=== PATIENT | female | born 1980 | race Caucasian/White ===

== ENCOUNTER 2016-06-11 15:11 | Emergency (ER) ==
--- NOTE | 2016-06-11 16:28 | EDDOCDS ---
Physician Documentation [facility] Name: Angela Hall Age: 35 yrs Sex: Female : 1980 Arrival Date: 06/11/2016 Time: 15:11 Bed Triage 3 Private MD: Disposition: 06/11/16 16:22 Discharged to Home/Self Care. Impression: Acute cystitis - UTI. - Condition is Stable. - Discharge Instructions: Urinary Tract Infection. - Prescriptions for Cipro 250 mg Oral Tablet - take 1 tablet by ORAL route every 12 hours; 20 tablet. - Medication Reconciliation, Local Pharmacy Hours form. - Follow up: Private Physician; When: Call to arrange an appointment; Reason: Recheck today's complaints. Follow up: Emergency Department; When: As needed; Reason: Fever > 102F, Worsening of conditions. - Problem is new. - Symptoms are unchanged. Historical: - Allergies: no known allergies; - Home Meds: 1. Suboxone 8-2 mg SL film 1 film twice a day 2. Lexapro 15mg Oral tab once daily 3. Uristat 95 mg oral tab daily (Last dose: 06/11/2016 09:00) - PMHx: Depression; - PSHx: Appendectomy; ; - Social history: Smoking status: Patient uses tobacco products, light tobacco smoker. No barriers to communication noted, The patient speaks fluent Kyrgyz, Speaks appropriately for age. - Family history: Not pertinent. - : The pt / caregiver states he / she is not on anticoagulants. Home medication list is obtained from the patient. - Exposure Risk Screening:: None identified. ALIGNING INSPECTOR: 06/11 15:27 LMP N/A - control method pml Vital Signs: 15:14 BP 127 / 75 RA Sitting (auto/reg); Pulse 90; Resp 18; Temp 98.5(O); Pulse Ox 99% on bnb R/A; Weight 54.43 kg / 120 lbs; Height 5 ft. 3 in. (160.02 cm); Pain 5/10; 15:14 Body Mass Index 21.26 (54.43 kg, 160.02 cm) bnb MDM: 15:20 UA Ordered. EDMS 15:20 Urine Culture Ordered. EDMS 15:20 UCG by Nursing ordered. cc10 16:11 UA Reviewed. ar2 Point of Care Testing: Urine : 15:29 hCG Reading: Negative; Control Reading: Positive; pml Ranges: Signatures: Dispatcher [employer] EDDavid Gibbs, MICKY WEEKS ar2 Rocío Valladares RN RN pml Dimitri Melendez PA-C PA-C cc10 MTDD
--- NOTE | 2016-06-11 16:28 | EDDOCDS ---
Nurse's Notes [facility] Name: Angela Hall Age: 35 yrs Sex: Female : 1980 Arrival Date: 06/11/2016 Time: 15:11 Bed Triage 3 Private MD: Diagnosis: Acute cystitis-UTI Presentation: 06/11 15:15 Presenting complaint: Patient states: burning/pain/urgency with urination, pain rs3 radiating to back for a week. Adult Sepsis Screening: The patient does not have new or worsening altered mentation. Patient's respiratory rate is less than 22. Systolic blood pressure is greater than 100. Patient has a qSOFA score of 0- Negative Sepsis Screen. Suicide/Homicide risk assessment- the patient denies having any suicidal and/or homicidal ideations and does not present with any other emotional, behavioral or mental health complaints. Status: Patient is not a media services director or dependent. Transition of care: patient was not received from another setting of care. 15:15 Acuity: JAYCE Level 4 rs3 15:15 Method Of Arrival: Walkin/Carried/Asstd rs3 Triage Assessment: 15:27 General: Appears in no apparent distress. Pain: Location: pelvis Pain currently is 6 pml out of 10 on a pain scale. HIV screening NA for this visit Offered previously. GENERATOR TECHNICIAN: 15:27 LMP N/A - control method pml Historical: - Allergies: no known allergies; - Home Meds: 1. Suboxone 8-2 mg SL film 1 film twice a day 2. Lexapro 15mg Oral tab once daily 3. Uristat 95 mg oral tab daily (Last dose: 06/11/2016 09:00) - PMHx: Depression; - PSHx: Appendectomy; ; - Social history: Smoking status: Patient uses tobacco products, light tobacco smoker. No barriers to communication noted, The patient speaks fluent Sudanese, Speaks appropriately for age. - Family history: Not pertinent. - : The pt / caregiver states he / she is not on anticoagulants. Home medication list is obtained from the patient. - Exposure Risk Screening:: None identified. Screenin:26 Screening information is obtained from the patient. Fall risk: No risks identified. pml Assistance ADL's: requires no assistance with activities of daily living. Abuse/DV Screen: The patient / caregiver reports he/she is: not in a situation that causes fear, pain or injury. Nutritional screening: No deficits noted. Advance Directives: Currently, there is no health care proxy. home support is adequate. Assessment: 16:26 General: Appears in no apparent distress, Behavior is appropriate for age, cooperative. pml Pain: Location: pelvis. Neurological: Level of Consciousness is awake, alert, Oriented to person, place, time. Cardiovascular: Capillary refill < 3 seconds. Respiratory: Airway is patent Respiratory effort is even, unlabored. GI: Abdomen is non- distended. Derm: Skin is pink, warm & dry. Vital Signs: 15:14 BP 127 / 75 RA Sitting (auto/reg); Pulse 90; Resp 18; Temp 98.5(O); Pulse Ox 99% on bnb R/A; Weight 54.43 kg; Height 5 ft. 3 in. (160.02 cm); Pain 5/10; 15:14 Body Mass Index 21.26 (54.43 kg, 160.02 cm) bnb Vitals: 15:14 Log In Time: June 11, 2016 at 15:12. bnb ED Course: 15:12 Patient visited by Tamie Zaldivar PCA. bnb 15:12 Patient moved to Waiting bnb 15:15 Patient moved to Pre RCE bnb 15:16 Patient name changed from Angela\S\\S\Rafael\S\ to Angela\S\ \S\Rafael. EDMS 15:17 Triage Initiated rs3 15:19 Patient moved to Triage 3 ar3 15:28 Patient visited by Rocío Valladares RN. pml 15:29 Patient visited by Lynn Scales PCA. ar3 15:29 Urine Culture Sent. ar3 15:29 UA Sent. ar3 16:08 David Leung PA-C is PHCP. ar2 16:08 Levar Jimenez MD is Attending Physician. ar2 16:08 Patient visited by David Leung PA-C. ar2 16:26 The patient / caregiver is instructed regarding the plan of care and ED course. Patient pml has correct armband on for positive identification. Bed in low position. Call light in reach. 16:26 No IV's were initiated during this patient's visit. No procedures done that require pml assistance. Point of Care Testing: Urine : 15:29 hCG Reading: Negative; Control Reading: Positive; pml Ranges: Order Results: Lab Order: UA; SPEC'M 06/11/16 15:23 Test: APPEARANCE, URINE; Value: CLOUDY; Range: CLEAR; Abnormal: Above high normal; Status: F Test: COLOR, URINE; Value: NATE; Range: YELLOW; Status: F Test: PH,URINE; Value: 7.0; Range: 5.0-9.0; Units: UNITS; Status: F Test: SPECIFIC GRAVITY URINE AUTO; Value: 1.015; Range: 1.002-1.035; Status: F Test: PROTEIN, URINE AUTO; Value: 1+; Range: NEGATIVE; Abnormal: Above high normal; Units: mg/dL; Status: F Test: GLUCOSE, URINE (UA) AUTO; Value: NEGATIVE; Range: NEGATIVE; Units: mg/dL; Status: F Test: KETONE, URINE AUTO; Value: NEGATIVE; Range: NEGATIVE; Units: mg/dL; Status: F Test: UROBILINOGEN, URINE AUTO; Value: 2.0; Range: 0.0-2.0; Abnormal: Above high normal; Units: mg/dL; Status: F Test: BILIRUBIN, URINE AUTO; Value: NEGATIVE; Range: NEGATIVE; Status: F Test: NITRITE, URINE AUTO; Value: POSITIVE; Range: NEGATIVE; Status: F Test: LEUKOCYTE ESTERASE, URINE AUTO; Value: 1+; Range: NEGATIVE; Abnormal: Above high normal; Status: F Test: BLOOD, URINE BLOOD; Value: 3+; Range: NEGATIVE; Abnormal: Above high normal; Status: F Test: WBC, URINE AUTO; Value: 64; Range: 0-3; Abnormal: Above high normal; Units: /HPF; Status: F Test: RBC, URINE AUTO; Value: TNTC; Range: 0-3; Abnormal: Above high normal; Units: /HPF; Status: F Test: BACTERIA, URINE AUTO; Value: 1+; Range: NEGATIVE; Abnormal: Above high normal; Status: F Test: SQUAMOUS EPITHELIAL CELL UR AU; Value: 1; Range: 0-6; Units: /HPF; Status: F Test: MUCUS, URINE; Value: SMALL; Range: NEGATIVE; Status: F Test: HYALINE CAST, URINE AUTO; Value: 0; Range: 0-1; Units: /LPF; Status: F Outcome: 16:22 Discharge ordered by Provider. ar2 16:26 Discharge Assessment: Patient awake, alert and oriented x 3. No cognitive and/or pml functional deficits noted. Patient verbalized understanding of disposition instructions. patient administered narcotics - no. The following High Risk Discharge criteria are identified: None. Discharged to home ambulatory. Condition: good Condition: stable. Discharge instructions given to patient, Instructed on discharge instructions, follow up and referral plans. medication usage, Demonstrated understanding of instructions, medications, Pt was receptive of discharge instructions/ teaching. Prescriptions given X 1. No special radiology studies were completed. Property sent home with patient. 16:27 Patient left the ED. pml Signatures: Dispatcher [employer] EDMS David Leung PA-C PA-C ar2 Wilma Jordan RN RN rs3 Lynn Scales, SMOKING TOBACCO CUTTER OPERATOR SMOKING TOBACCO CUTTER OPERATOR ar3 Rocío Valladares RN RN pml Tamie Zaldivar, SMOKING TOBACCO CUTTER OPERATOR SMOKING TOBACCO CUTTER OPERATOR bnb Corrections: (The following items were deleted from the chart) 15:22 15:14 BP 127 / 75 Sitting Auto R Arm Regular; Pulse 90bpm; Resp 18bpm; Pulse Ox 99% RA; bnb Temp 94.5F; 54.43 kg; Height 5 ft. 3 in.; BMI: 21.2; Pain 5/10; bnb MTDD
--- NOTE | 2016-06-13 17:28 | EDDOCDS ---
Physician Documentation [facility] Name: Angela Hall Age: 35 yrs Sex: Female : 1980 Arrival Date: 06/11/2016 Time: 15:11 Bed Triage 3 Private MD: Disposition: 06/11/16 16:22 Discharged to Home/Self Care. Impression: Acute cystitis - UTI. - Condition is Stable. - Discharge Instructions: Urinary Tract Infection. - Prescriptions for Cipro 250 mg Oral Tablet - take 1 tablet by ORAL route every 12 hours; 20 tablet. - Medication Reconciliation, Local Pharmacy Hours form. - Follow up: Private Physician; When: Call to arrange an appointment; Reason: Recheck today's complaints. Follow up: Emergency Department; When: As needed; Reason: Fever > 102F, Worsening of conditions. - Problem is new. - Symptoms are unchanged. Historical: - Allergies: no known allergies; - Home Meds: 1. Suboxone 8-2 mg SL film 1 film twice a day 2. Lexapro 15mg Oral tab once daily 3. Uristat 95 mg oral tab daily (Last dose: 06/11/2016 09:00) - PMHx: Depression; - PSHx: Appendectomy; ; - Social history: Smoking status: Patient uses tobacco products, light tobacco smoker. No barriers to communication noted, The patient speaks fluent Fijian, Speaks appropriately for age. - Family history: Not pertinent. - : The pt / caregiver states he / she is not on anticoagulants. Home medication list is obtained from the patient. - Exposure Risk Screening:: None identified. ENVELOPE STUFFER: 06/11 15:27 LMP N/A - control method pml Vital Signs: 15:14 BP 127 / 75 RA Sitting (auto/reg); Pulse 90; Resp 18; Temp 98.5(O); Pulse Ox 99% on bnb R/A; Weight 54.43 kg / 120 lbs; Height 5 ft. 3 in. (160.02 cm); Pain 5/10; 15:14 Body Mass Index 21.26 (54.43 kg, 160.02 cm) bnb MDM: 15:20 UA Ordered. EDMS 15:20 Urine Culture Ordered. EDMS 15:20 UCG by Nursing ordered. cc10 16:11 UA Reviewed. ar2 06/12 11:38 T-Sheet-- Draft Copy was scanned into [employer] and attached to record. gb Point of Care Testing: Urine : 06/11 15:29 hCG Reading: Negative; Control Reading: Positive; pml Ranges: Signatures: Dispatcher [employer] EDMS Yumiko Garza, Reg Reg gb David Leung PA-C PA-C ar2 Rocío Valladares RN RN pml Dimitri Melendez PA-C PA-C cc10 The chart was reviewed and I authenticate all verbal orders and agree with the evaluation and treatment provided.Attachments: 06/12 11:38 T-Sheet-- Draft Copy gb Chart Complete MTDD
--- NOTE | 2016-06-13 17:28 | EDDOCDS ---
Physician Documentation [facility] Name: Angela Hall Age: 35 yrs Sex: Female : 1980 Arrival Date: 06/11/2016 Time: 15:11 Bed Triage 3 Private MD: Disposition: 06/11/16 16:22 Discharged to Home/Self Care. Impression: Acute cystitis - UTI. - Condition is Stable. - Discharge Instructions: Urinary Tract Infection. - Prescriptions for Cipro 250 mg Oral Tablet - take 1 tablet by ORAL route every 12 hours; 20 tablet. - Medication Reconciliation, Local Pharmacy Hours form. - Follow up: Private Physician; When: Call to arrange an appointment; Reason: Recheck today's complaints. Follow up: Emergency Department; When: As needed; Reason: Fever > 102F, Worsening of conditions. - Problem is new. - Symptoms are unchanged. Historical: - Allergies: no known allergies; - Home Meds: 1. Suboxone 8-2 mg SL film 1 film twice a day 2. Lexapro 15mg Oral tab once daily 3. Uristat 95 mg oral tab daily (Last dose: 06/11/2016 09:00) - PMHx: Depression; - PSHx: Appendectomy; ; - Social history: Smoking status: Patient uses tobacco products, light tobacco smoker. No barriers to communication noted, The patient speaks fluent Malagasy, Speaks appropriately for age. - Family history: Not pertinent. - : The pt / caregiver states he / she is not on anticoagulants. Home medication list is obtained from the patient. - Exposure Risk Screening:: None identified. TURKEY EGG GATHERER: 06/11 15:27 LMP N/A - control method pml Vital Signs: 15:14 BP 127 / 75 RA Sitting (auto/reg); Pulse 90; Resp 18; Temp 98.5(O); Pulse Ox 99% on bnb R/A; Weight 54.43 kg / 120 lbs; Height 5 ft. 3 in. (160.02 cm); Pain 5/10; 15:14 Body Mass Index 21.26 (54.43 kg, 160.02 cm) bnb MDM: 15:20 UA Ordered. EDMS 15:20 Urine Culture Ordered. EDMS 15:20 UCG by Nursing ordered. cc10 16:11 UA Reviewed. ar2 06/12 11:38 T-Sheet-- Draft Copy was scanned into [employer] and attached to record. gb Point of Care Testing: Urine : 06/11 15:29 hCG Reading: Negative; Control Reading: Positive; pml Ranges: Signatures: Dispatcher [employer] EDMS Yumiko Garza, Reg Reg gb David Leung PA-C PA-C ar2 Rocío Valladares RN RN pml Dimitri Melendez PA-C PA-C cc10 The chart was reviewed and I authenticate all verbal orders and agree with the evaluation and treatment provided.Attachments: 06/12 11:38 T-Sheet-- Draft Copy gb Chart Complete MTDD
--- NOTE | 2016-06-13 17:28 | EDDOCDS ---
Nurse's Notes [facility] Name: Angela Hall Age: 35 yrs Sex: Female : 1980 Arrival Date: 06/11/2016 Time: 15:11 Bed Triage 3 Private MD: Diagnosis: Acute cystitis-UTI Presentation: 06/11 15:15 Presenting complaint: Patient states: burning/pain/urgency with urination, pain rs3 radiating to back for a week. Adult Sepsis Screening: The patient does not have new or worsening altered mentation. Patient's respiratory rate is less than 22. Systolic blood pressure is greater than 100. Patient has a qSOFA score of 0- Negative Sepsis Screen. Suicide/Homicide risk assessment- the patient denies having any suicidal and/or homicidal ideations and does not present with any other emotional, behavioral or mental health complaints. Status: Patient is not a service line bus cleaner or dependent. Transition of care: patient was not received from another setting of care. 15:15 Acuity: JAYCE Level 4 rs3 15:15 Method Of Arrival: Walkin/Carried/Asstd rs3 Triage Assessment: 15:27 General: Appears in no apparent distress. Pain: Location: pelvis Pain currently is 6 pml out of 10 on a pain scale. HIV screening NA for this visit Offered previously. SNACK STEWARDESS: 15:27 LMP N/A - control method pml Historical: - Allergies: no known allergies; - Home Meds: 1. Suboxone 8-2 mg SL film 1 film twice a day 2. Lexapro 15mg Oral tab once daily 3. Uristat 95 mg oral tab daily (Last dose: 06/11/2016 09:00) - PMHx: Depression; - PSHx: Appendectomy; ; - Social history: Smoking status: Patient uses tobacco products, light tobacco smoker. No barriers to communication noted, The patient speaks fluent Northern Irish, Speaks appropriately for age. - Family history: Not pertinent. - : The pt / caregiver states he / she is not on anticoagulants. Home medication list is obtained from the patient. - Exposure Risk Screening:: None identified. Screenin:26 Screening information is obtained from the patient. Fall risk: No risks identified. pml Assistance ADL's: requires no assistance with activities of daily living. Abuse/DV Screen: The patient / caregiver reports he/she is: not in a situation that causes fear, pain or injury. Nutritional screening: No deficits noted. Advance Directives: Currently, there is no health care proxy. home support is adequate. Assessment: 16:26 General: Appears in no apparent distress, Behavior is appropriate for age, cooperative. pml Pain: Location: pelvis. Neurological: Level of Consciousness is awake, alert, Oriented to person, place, time. Cardiovascular: Capillary refill < 3 seconds. Respiratory: Airway is patent Respiratory effort is even, unlabored. GI: Abdomen is non- distended. Derm: Skin is pink, warm & dry. Vital Signs: 15:14 BP 127 / 75 RA Sitting (auto/reg); Pulse 90; Resp 18; Temp 98.5(O); Pulse Ox 99% on bnb R/A; Weight 54.43 kg; Height 5 ft. 3 in. (160.02 cm); Pain 5/10; 15:14 Body Mass Index 21.26 (54.43 kg, 160.02 cm) bnb Vitals: 15:14 Log In Time: June 11, 2016 at 15:12. bnb ED Course: 15:12 Patient visited by Tamie Zaldivar PCA. bnb 15:12 Patient moved to Waiting bnb 15:15 Patient moved to Pre RCE bnb 15:16 Patient name changed from Angela\S\\S\Rafael\S\ to Angela\S\ \S\Rafael. EDMS 15:17 Triage Initiated rs3 15:19 Patient moved to Triage 3 ar3 15:28 Patient visited by Rocío Valladares RN. pml 15:29 Patient visited by Lynn Scales PCA. ar3 15:29 Urine Culture Sent. ar3 15:29 UA Sent. ar3 16:08 David Leung PA-C is PHCP. ar2 16:08 Levar Jimenez MD is Attending Physician. ar2 16:08 Patient visited by David Leung PA-C. ar2 16:26 The patient / caregiver is instructed regarding the plan of care and ED course. Patient pml has correct armband on for positive identification. Bed in low position. Call light in reach. 16:26 No IV's were initiated during this patient's visit. No procedures done that require pml assistance. 06/12 11:38 T-Sheet-- Draft Copy was scanned into [employer] and attached to record. Point of Care Testing: Urine : 06/11 15:29 hCG Reading: Negative; Control Reading: Positive; pml Ranges: Order Results: Lab Order: UA; SPEC'M 06/11/16 15:23 Test: APPEARANCE, URINE; Value: CLOUDY; Range: CLEAR; Abnormal: Above high normal; Status: F Test: COLOR, URINE; Value: NATE; Range: YELLOW; Status: F Test: PH,URINE; Value: 7.0; Range: 5.0-9.0; Units: UNITS; Status: F Test: SPECIFIC GRAVITY URINE AUTO; Value: 1.015; Range: 1.002-1.035; Status: F Test: PROTEIN, URINE AUTO; Value: 1+; Range: NEGATIVE; Abnormal: Above high normal; Units: mg/dL; Status: F Test: GLUCOSE, URINE (UA) AUTO; Value: NEGATIVE; Range: NEGATIVE; Units: mg/dL; Status: F Test: KETONE, URINE AUTO; Value: NEGATIVE; Range: NEGATIVE; Units: mg/dL; Status: F Test: UROBILINOGEN, URINE AUTO; Value: 2.0; Range: 0.0-2.0; Abnormal: Above high normal; Units: mg/dL; Status: F Test: BILIRUBIN, URINE AUTO; Value: NEGATIVE; Range: NEGATIVE; Status: F Test: NITRITE, URINE AUTO; Value: POSITIVE; Range: NEGATIVE; Status: F Test: LEUKOCYTE ESTERASE, URINE AUTO; Value: 1+; Range: NEGATIVE; Abnormal: Above high normal; Status: F Test: BLOOD, URINE BLOOD; Value: 3+; Range: NEGATIVE; Abnormal: Above high normal; Status: F Test: WBC, URINE AUTO; Value: 64; Range: 0-3; Abnormal: Above high normal; Units: /HPF; Status: F Test: RBC, URINE AUTO; Value: TNTC; Range: 0-3; Abnormal: Above high normal; Units: /HPF; Status: F Test: BACTERIA, URINE AUTO; Value: 1+; Range: NEGATIVE; Abnormal: Above high normal; Status: F Test: SQUAMOUS EPITHELIAL CELL UR AU; Value: 1; Range: 0-6; Units: /HPF; Status: F Test: MUCUS, URINE; Value: SMALL; Range: NEGATIVE; Status: F Test: HYALINE CAST, URINE AUTO; Value: 0; Range: 0-1; Units: /LPF; Status: F Lab Order: Urine Culture; SPEC'M 06/11/16 15:23 Test: URINE CULTURE; Value: <EXTERNAL COMMENT eCWMed> FULL REPORT IN LAB NOTES (eCW and Medent).; Status: F Test: URINE CULTURE; Value: URINE CULTURE RESULT NO GROWTH CLINICAL SIGNIFICANCE 1 ORGANISM; Status: F Outcome: 16:22 Discharge ordered by Provider. ar2 16:26 Discharge Assessment: Patient awake, alert and oriented x 3. No cognitive and/or pml functional deficits noted. Patient verbalized understanding of disposition instructions. patient administered narcotics - no. The following High Risk Discharge criteria are identified: None. Discharged to home ambulatory. Condition: good Condition: stable. Discharge instructions given to patient, Instructed on discharge instructions, follow up and referral plans. medication usage, Demonstrated understanding of instructions, medications, Pt was receptive of discharge instructions/ teaching. Prescriptions given X 1. No special radiology studies were completed. Property sent home with patient. 16:27 Patient left the ED. pml Signatures: Dispatcher [employer] EDMS Yumiko Garza, Reg Reg gb David Leung, PA-C PA-C ar2 Wilma JordanRN RN rs3 Lynn Scales, SHIPFITTERS SUPERVISOR SHIPFITTERS SUPERVISOR ar3 Rocío Valladares RN RN pml Tamie Zaldivar, SHIPFITTERS SUPERVISOR SHIPFITTERS SUPERVISOR bnb Corrections: (The following items were deleted from the chart) 15:22 15:14 BP 127 / 75 Sitting Auto R Arm Regular; Pulse 90bpm; Resp 18bpm; Pulse Ox 99% RA; bnb Temp 94.5F; 54.43 kg; Height 5 ft. 3 in.; BMI: 21.2; Pain 5/10; bnb Chart Complete MTDD
--- NOTE | 2016-06-14 14:45 | EDDOCDS ---
Physician Documentation [facility] Name: Angela Hall Age: 35 yrs Sex: Female : 1980 Arrival Date: 06/11/2016 Time: 15:11 Bed Triage 3 Private MD: Disposition: 06/11/16 16:22 Discharged to Home/Self Care. Impression: Acute cystitis - UTI. - Condition is Stable. - Discharge Instructions: Urinary Tract Infection. - Prescriptions for Cipro 250 mg Oral Tablet - take 1 tablet by ORAL route every 12 hours; 20 tablet. - Medication Reconciliation, Local Pharmacy Hours form. - Follow up: Private Physician; When: Call to arrange an appointment; Reason: Recheck today's complaints. Follow up: Emergency Department; When: As needed; Reason: Fever > 102F, Worsening of conditions. - Problem is new. - Symptoms are unchanged. Historical: - Allergies: no known allergies; - Home Meds: 1. Suboxone 8-2 mg SL film 1 film twice a day 2. Lexapro 15mg Oral tab once daily 3. Uristat 95 mg oral tab daily (Last dose: 06/11/2016 09:00) - PMHx: Depression; - PSHx: Appendectomy; ; - Social history: Smoking status: Patient uses tobacco products, light tobacco smoker. No barriers to communication noted, The patient speaks fluent Swiss, Speaks appropriately for age. - Family history: Not pertinent. - : The pt / caregiver states he / she is not on anticoagulants. Home medication list is obtained from the patient. - Exposure Risk Screening:: None identified. HOME LENDING OFFICER: 06/11 15:27 LMP N/A - control method pml Vital Signs: 15:14 BP 127 / 75 RA Sitting (auto/reg); Pulse 90; Resp 18; Temp 98.5(O); Pulse Ox 99% on bnb R/A; Weight 54.43 kg / 120 lbs; Height 5 ft. 3 in. (160.02 cm); Pain 5/10; 15:14 Body Mass Index 21.26 (54.43 kg, 160.02 cm) bnb MDM: 15:20 UA Ordered. EDMS 15:20 Urine Culture Ordered. EDMS 15:20 UCG by Nursing ordered. cc10 16:11 UA Reviewed. ar2 06/12 11:38 T-Sheet-- Draft Copy was scanned into [employer] and attached to record. kelly Point of Care Testing: Urine : 06/11 15:29 hCG Reading: Negative; Control Reading: Positive; pml Ranges: Signatures: Dispatcher [employer] EDYumiko Beckham, Reg Reg gb David Leung PA-C PA-C ar2 Rocío Valladares RN RN pml Dimitri Melendez PA-C PA-C cc10 Chart Complete MTDD
--- NOTE | 2016-06-14 14:45 | EDDOCDS ---
Physician Documentation [facility] Name: Angela Hall Age: 35 yrs Sex: Female : 1980 Arrival Date: 06/11/2016 Time: 15:11 Bed Triage 3 Private MD: Disposition: 06/11/16 16:22 Discharged to Home/Self Care. Impression: Acute cystitis - UTI. - Condition is Stable. - Discharge Instructions: Urinary Tract Infection. - Prescriptions for Cipro 250 mg Oral Tablet - take 1 tablet by ORAL route every 12 hours; 20 tablet. - Medication Reconciliation, Local Pharmacy Hours form. - Follow up: Private Physician; When: Call to arrange an appointment; Reason: Recheck today's complaints. Follow up: Emergency Department; When: As needed; Reason: Fever > 102F, Worsening of conditions. - Problem is new. - Symptoms are unchanged. Historical: - Allergies: no known allergies; - Home Meds: 1. Suboxone 8-2 mg SL film 1 film twice a day 2. Lexapro 15mg Oral tab once daily 3. Uristat 95 mg oral tab daily (Last dose: 06/11/2016 09:00) - PMHx: Depression; - PSHx: Appendectomy; ; - Social history: Smoking status: Patient uses tobacco products, light tobacco smoker. No barriers to communication noted, The patient speaks fluent Omani, Speaks appropriately for age. - Family history: Not pertinent. - : The pt / caregiver states he / she is not on anticoagulants. Home medication list is obtained from the patient. - Exposure Risk Screening:: None identified. 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 3 in. (160.02 cm); Pain 5/10; 15:14 Body Mass Index 21.26 (54.43 kg, 160.02 cm) bnb MDM: 15:20 UA Ordered. EDMS 15:20 Urine Culture Ordered. EDMS 15:20 UCG by Nursing ordered. cc10 16:11 UA Reviewed. ar2 06/12 11:38 T-Sheet-- Draft Copy was scanned into [employer] and attached to record. kelly Point of Care Testing: Urine : 06/11 15:29 hCG Reading: Negative; Control Reading: Positive; pml Ranges: Signatures: Dispatcher [employer] EDYumiko Beckham, Reg Reg gb David Leung PA-C PA-C ar2 Rocío Valladares RN RN pml Dimitri Melendez PA-C PA-C cc10 Chart Complete MTDD
--- NOTE | 2016-06-14 14:45 | EDDOCDS ---
Nurse's Notes [facility] Name: Angela Hall Age: 35 yrs Sex: Female : 1980 Arrival Date: 06/11/2016 Time: 15:11 Bed Triage 3 Private MD: Diagnosis: Acute cystitis-UTI Presentation: 06/11 15:15 Presenting complaint: Patient states: burning/pain/urgency with urination, pain rs3 radiating to back for a week. Adult Sepsis Screening: The patient does not have new or worsening altered mentation. Patient's respiratory rate is less than 22. Systolic blood pressure is greater than 100. Patient has a qSOFA score of 0- Negative Sepsis Screen. Suicide/Homicide risk assessment- the patient denies having any suicidal and/or homicidal ideations and does not present with any other emotional, behavioral or mental health complaints. 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 Transition of care: patient was not received from another setting of care. 15:15 Acuity: JAYCE Level 4 rs3 15:15 Method Of Arrival: Walkin/Carried/Asstd rs3 Triage Assessment: 15:27 General: Appears in no apparent distress. Pain: Location: pelvis Pain currently is 6 pml out of 10 on a pain scale. HIV screening NA for this visit Offered previously. 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 Suboxone 8-2 mg SL film 1 film twice a day 2. Lexapro 15mg Oral tab once daily 3. Uristat 95 mg oral tab daily (Last dose: 06/11/2016 09:00) - PMHx: Depression; - PSHx: Appendectomy; ; - Social history: Smoking status: Patient uses tobacco products, light tobacco smoker. No barriers to communication noted, The patient speaks fluent Albanian, Speaks appropriately for age. - Family history: Not pertinent. - : The pt / caregiver states he / she is not on anticoagulants. Home medication list is obtained from the patient. - Exposure Risk Screening:: None identified. Screenin:26 Screening information is obtained from the patient. Fall risk: No risks identified. pml Assistance ADL's: requires no assistance with activities of daily living. Abuse/DV Screen: The patient / caregiver reports he/she is: not in a situation that causes fear, pain or injury. Nutritional screening: No deficits noted. Advance Directives: Currently, there is no health care proxy. home support is adequate. Assessment: 16:26 General: Appears in no apparent distress, Behavior is appropriate for age, cooperative. pml Pain: Location: pelvis. Neurological: Level of Consciousness is awake, alert, Oriented to person, place, time. Cardiovascular: Capillary refill < 3 seconds. Respiratory: Airway is patent Respiratory effort is even, unlabored. GI: Abdomen is non- distended. Derm: Skin is pink, warm & dry. Vital Signs: 15:14 BP 127 / 75 RA Sitting (auto/reg); Pulse 90; Resp 18; Temp 98.5(O); Pulse Ox 99% on bnb R/A; Weight 54.43 kg; Height 5 ft. 3 in. (160.02 cm); Pain 5/10; 15:14 Body Mass Index 21.26 (54.43 kg, 160.02 cm) bnb Vitals: 15:14 Log In Time: June 11, 2016 at 15:12. bnb ED Course: 15:12 Patient visited by Tamie Zaldivar PCA. bnb 15:12 Patient moved to Waiting bnb 15:15 Patient moved to Pre RCE bnb 15:16 Patient name changed from Angela\S\\S\Rafael\S\ to Angela\S\ \S\Rafael. EDMS 15:17 Triage Initiated rs3 15:19 Patient moved to Triage 3 ar3 15:28 Patient visited by Rocío Valladares RN. pml 15:29 Patient visited by Lynn Scales PCA. ar3 15:29 Urine Culture Sent. ar3 15:29 UA Sent. ar3 16:08 David Leung PA-C is PHCP. ar2 16:08 Levar Jimenez MD is Attending Physician. ar2 16:08 Patient visited by David Leung PA-C. ar2 16:26 The patient / caregiver is instructed regarding the plan of care and ED course. Patient pml has correct armband on for positive identification. Bed in low position. Call light in reach. 16:26 No IV's were initiated during this patient's visit. No procedures done that require pml assistance. 06/12 11:38 T-Sheet-- Draft Copy was scanned into [employer] and attached to record. Point of Care Testing: Urine : 06/11 15:29 hCG Reading: Negative; Control Reading: Positive; pml Ranges: Order Results: Lab Order: UA; SPEC'M 06/11/16 15:23 Test: APPEARANCE, URINE; Value: CLOUDY; Range: CLEAR; Abnormal: Above high normal; Status: F Test: COLOR, URINE; Value: NATE; Range: YELLOW; Status: F Test: PH,URINE; Value: 7.0; Range: 5.0-9.0; Units: UNITS; Status: F Test: SPECIFIC GRAVITY URINE AUTO; Value: 1.015; Range: 1.002-1.035; Status: F Test: PROTEIN, URINE AUTO; Value: 1+; Range: NEGATIVE; Abnormal: Above high normal; Units: mg/dL; Status: F Test: GLUCOSE, URINE (UA) AUTO; Value: NEGATIVE; Range: NEGATIVE; Units: mg/dL; Status: F Test: KETONE, URINE AUTO; Value: NEGATIVE; Range: NEGATIVE; Units: mg/dL; Status: F Test: UROBILINOGEN, URINE AUTO; Value: 2.0; Range: 0.0-2.0; Abnormal: Above high normal; Units: mg/dL; Status: F Test: BILIRUBIN, URINE AUTO; Value: NEGATIVE; Range: NEGATIVE; Status: F Test: NITRITE, URINE AUTO; Value: POSITIVE; Range: NEGATIVE; Status: F Test: LEUKOCYTE ESTERASE, URINE AUTO; Value: 1+; Range: NEGATIVE; Abnormal: Above high normal; Status: F Test: BLOOD, URINE BLOOD; Value: 3+; Range: NEGATIVE; Abnormal: Above high normal; Status: F Test: WBC, URINE AUTO; Value: 64; Range: 0-3; Abnormal: Above high normal; Units: /HPF; Status: F Test: RBC, URINE AUTO; Value: TNTC; Range: 0-3; Abnormal: Above high normal; Units: /HPF; Status: F Test: BACTERIA, URINE AUTO; Value: 1+; Range: NEGATIVE; Abnormal: Above high normal; Status: F Test: SQUAMOUS EPITHELIAL CELL UR AU; Value: 1; Range: 0-6; Units: /HPF; Status: F Test: MUCUS, URINE; Value: SMALL; Range: NEGATIVE; Status: F Test: HYALINE CAST, URINE AUTO; Value: 0; Range: 0-1; Units: /LPF; Status: F Lab Order: Urine Culture; SPEC'M 06/11/16 15:23 Test: URINE CULTURE; Value: <EXTERNAL COMMENT eCWMed> FULL REPORT IN LAB NOTES (eCW and Medent).; Status: F Test: URINE CULTURE; Value: URINE CULTURE RESULT NO GROWTH CLINICAL SIGNIFICANCE 1 ORGANISM; Status: F Outcome: 16:22 Discharge ordered by Provider. ar2 16:26 Discharge Assessment: Patient awake, alert and oriented x 3. No cognitive and/or pml functional deficits noted. Patient verbalized understanding of disposition instructions. patient administered narcotics - no. The following High Risk Discharge criteria are identified: None. Discharged to home ambulatory. Condition: good Condition: stable. Discharge instructions given to patient, Instructed on discharge instructions, follow up and referral plans. medication usage, Demonstrated understanding of instructions, medications, Pt was receptive of discharge instructions/ teaching. Prescriptions given X 1. No special radiology studies were completed. Property sent home with patient. 16:27 Patient left the ED. pml Signatures: Dispatcher [employer] EDMS Yumiko Garza, Reg Reg gb David Leung, PA-C PA-C ar2 Wilma JordanRN RN rs3 Lynn Scales, REPRESENTATIVE PERSONAL SERVICE REPRESENTATIVE PERSONAL SERVICE ar3 Rocío Valladares RN RN pml Tamie Zaldivar, REPRESENTATIVE PERSONAL SERVICE REPRESENTATIVE PERSONAL SERVICE bnb Corrections: (The following items were deleted from the chart) 15:22 15:14 BP 127 / 75 Sitting Auto R Arm Regular; Pulse 90bpm; Resp 18bpm; Pulse Ox 99% RA; bnb Temp 94.5F; 54.43 kg; Height 5 ft. 3 in.; BMI: 21.2; Pain 5/10; bnb Chart Complete MTDD
== END 2016-06-11 16:27 | disposition home or self-care (01) ==
LOC: EDBD 15:11 → M ED 15:11
DX: N30.00 Acute cystitis without hematuria (principal); F32.9 Major depressive disorder, single episode, unspecified; F17.200 Nicotine dependence, unspecified, uncomplicated; Z90.89 Acquired absence of other organs; Z79.891 Long term (current) use of opiate analgesic; Z79.899 Other long term (current) drug therapy

== ENCOUNTER 2016-08-11 19:59 | Emergency (ER) | payer SELFPAY ==
[~2016-08-11] VITALS: Ht 160 cm; Wt 54.4 kg
[2016-08-11 20:00] VITALS: BP 128/79
[2016-08-11] MEDS ORDERED: LEXA1TAB PO (20:07)
[2016-08-11] MEDS ORDERED: SUBO8MIS SL (20:07)
[2016-08-11] MEDS ORDERED: ADDE30CA PO (20:07)
[2016-08-11] MEDS ORDERED: AUGM875T27 PO (20:26)
[2016-08-11] MEDS ORDERED: NAPR500T PO (20:26)
[2016-08-11] MEDS ORDERED: NAPROXEN 250 MG TAB PO ONE (20:30)
[2016-08-11] MEDS ORDERED: AUGMENTIN 875 MG TAB PO ONE (20:30)
== END 2016-08-11 20:56 | disposition home or self-care (01) ==
LOC: M ED 20:50
DX: K02.9 Dental caries, unspecified (principal); H66.92 Otitis media, unspecified, left ear; R68.84 Jaw pain; F17.210 Nicotine dependence, cigarettes, uncomplicated; Z79.899 Other long term (current) drug therapy

== ENCOUNTER 2017-01-19 16:44 | Emergency (ER) | payer MEDICAID, OTHER ==
[~2017-01-19] VITALS: Ht 160 cm; Wt 61.4 kg
[~2017-01-19 16:44] MED LIST: ADDE30CA3 PO; AUGM875T28 PO; LEXA1TAB PO; NAPR500T PO; SUBO8MIS SL
[2017-01-19] MEDS ORDERED: BUPR150T3 (17:05)
[2017-01-19] MEDS ORDERED: ALBU17IN (17:05)
[2017-01-19] MEDS ORDERED: NEXP1IMP SC (17:08)
[2017-01-19] MEDS ORDERED: KETOROLAC 30 MG/ML VIAL (J1885) IV ONE (19:30)
[2017-01-19] MEDS ORDERED: ONDANSETRON 4MG/2ML VIAL (J2405) IV ONE (19:30)
[2017-01-19 19:45] LABS: BASO % 0.5 % (0.0-1.0); EOS # 0.2 K/mm3 (0.0-0.50); EOS % 3.3 % (0.0-3.0); LARGE UNSTAINED CELL # 0.1 K/mm3 (0.0-0.4); LARGE UNSTAINED CELL % 1.7 % (0.0-4.0); LYMPH # 1.3 K/mm3 (1.5-4.5); LYMPH % 18.6 % (24.0-44.0); MEAN CORPUSCULAR HGB CONC 35.1 g/dl (32.0-36.5); MEAN CORPUSCULAR VOLUME 91.1 fl (80.0-96.0); MONO # 0.4 K/mm3 (0.0-0.8); MONO % 4.9 % (0.0-5.0); NEUTROPHILS # 5.1 K/mm3 (1.8-7.7); PLATELET COUNT, AUTOMATED 214 k/mm3 (150-450); RED CELL DISTRIBUTION WIDTH 11.7 % (11.5-14.5); WHITE BLOOD COUNT 7.2 K/mm3 (4.0-10.0)
[2017-01-19 19:46] LABS: ADD MORPHOLOGY? NO
[2017-01-19 20:06] LABS: ANION GAP 6 MEQ/L (8-16); BLOOD UREA NITROGEN 14 MG/DL (7-18); CALCIUM LEVEL 8.6 MG/DL (8.5-10.1); CARBON DIOXIDE LEVEL 29 MEQ/L (21-32); CHLORIDE LEVEL 106 MEQ/L (98-107); CREATININE FOR GFR 0.75 MG/DL (0.55-1.02); GLOMERULAR FILTRATION RATE > 60.0 (>60); GLUCOSE, FASTING 89 MG/DL (70-105); POTASSIUM SERUM 3.8 MEQ/L (3.5-5.1); SODIUM LEVEL 141 MEQ/L (136-145)
--- NOTE | 2017-01-19 22:00 | REPUSA ---
CT of the abdomen and pelvis without contrast Clinical statement: Pain. Technique: Multiple axial CT images were obtained from the base of the lungs to the floor of the pelv is utilizing 5 mm axial slices without administration of contrast. Coronal and sagittal reconstructio ns were also obtained. No comparison is available. Findings: Chest: The visualized lung bases are clear. Abdomen: The kidneys are normal in size bilaterally. There is moderately severe right-sided hydroneph rosis and hydroureter caused by a 4 mm stone at the right ureterovesical junction. The left renal col lecting system is unremarkable. The liver is enlarged, measuring 24.4 cm in diameter. The spleen, lew creas, gallbladder and adrenal glands are unremarkable. The aorta demonstrates normal caliber and con tour. There is no abdominal lymphadenopathy or ascites. Pelvis: Moderate to large amount of stool fills the colon. The bowel is otherwise unremarkable, with no obstructive or inflammatory changes. The urinary bladder is within normal limits. There is no pelv ic lymphadenopathy or ascites. The other pelvic structures appear unremarkable. Bones: There are no suspicious osseous abnormalities seen. There is mild scoliosis noted. Impression: 1. Moderately severe right-sided hydronephrosis and hydroureter caused by a 4 mm obstructing stone at the right ureterovesical junction. 2. Hepatomegaly. 3. Moderately severe constipation. No focal evidence of obstruction.
[2017-01-19] MEDS ORDERED: TAMSULOSIN 0.4 MG CAP PO ONE (22:15)
[2017-01-19] MEDS ORDERED: ZOFR4TAB3 PO (22:16)
[2017-01-19] MEDS ORDERED: FLOM5CAP PO (22:16)
[2017-01-19] MEDS ORDERED: NAPR500T PO (22:16)
[2017-01-19 22:21] VITALS: BP 108/54
== END 2017-01-19 22:28 | disposition home or self-care (01) ==
LOC: M ED 16:44
DX: K59.00 Constipation, unspecified (principal); N13.2 Hydronephrosis with renal and ureteral calculous obstruction; F41.9 Anxiety disorder, unspecified; F17.210 Nicotine dependence, cigarettes, uncomplicated; F19.10 Other psychoactive substance abuse, uncomplicated; Z79.3 Long term (current) use of hormonal contraceptives; Z79.899 Other long term (current) drug therapy
CPT/HCPCS: 74176; 80048; 81001; 81025; 85025; 86140; 87086; 96374; 96375; 99284; J1885; J2405

== ENCOUNTER 2017-05-27 20:55 | Emergency (ER) | payer OTHER ==
[2017-05-27] MEDS: KETOROLAC 30 MG/ML VIAL (J1885) IM (22:41)
[2017-05-27 23:15] LABS: INFLUENZA A AMPLIFICATION NEGATIVE (NEGATIVE); INFLUENZA B AMPLIFICATION NEGATIVE (NEGATIVE)
[2017-05-27] MEDS: AUGMENTIN 875 MG TAB PO (23:30)
== END 2017-05-27 23:44 | disposition home or self-care (01) ==
LOC: M ED 20:55
DX: J02.0 Streptococcal pharyngitis (principal); K04.7 Periapical abscess without sinus; J32.9 Chronic sinusitis, unspecified; K02.9 Dental caries, unspecified; F41.9 Anxiety disorder, unspecified; F17.210 Nicotine dependence, cigarettes, uncomplicated; Z79.3 Long term (current) use of hormonal contraceptives; Z79.899 Other long term (current) drug therapy; Z98.890 Other specified postprocedural states; Z87.448 Personal history of other diseases of urinary system
CPT/HCPCS: J1885

== ENCOUNTER → 2018-01-10 | Outpatient (CLI) | payer OTHER ==
[2018-01-10 15:12] LABS: HEMOGLOBIN 13.6 g/dl (12.0-15.5); MEAN CORPUSCULAR HEMOGLOBIN 30.6 pg (27.0-33.0); MEAN CORPUSCULAR HGB CONC 33.2 g/dl (32.0-36.5); MEAN CORPUSCULAR VOLUME 92.3 fl (80.0-96.0); PLATELET COUNT, AUTOMATED 236 10^3/uL (150-450); RED BLOOD COUNT 4.44 10^6/uL (4.00-5.40); RED CELL DISTRIBUTION WIDTH 11.9 % (11.5-14.5); WHITE BLOOD COUNT 10.3 10^3/uL (4.0-10.0)
[2018-01-10 15:48] LABS: ALBUMIN 3.7 GM/DL (3.2-5.2); ALBUMIN/GLOBULIN RATIO 1.28 (1.00-1.93); ALKALINE PHOSPHATASE 75 U/L (45-117); ALT/SGPT 20 U/L (12-78); ANION GAP 8 MEQ/L (8-16); AST/SGOT 12 U/L (7-37); BILIRUBIN,TOTAL 0.4 MG/DL (0.2-1.0); BLOOD UREA NITROGEN 16 MG/DL (7-18); CALCIUM LEVEL 8.8 MG/DL (8.5-10.1); CARBON DIOXIDE LEVEL 29 MEQ/L (21-32); CHLORIDE LEVEL 105 MEQ/L (98-107); CHOLESTEROL LEVEL 123 MG/DL (<200); CHOLESTEROL RISK RATIO 2.157 (<5); CREATININE FOR GFR 0.72 MG/DL (0.55-1.30); GLOMERULAR FILTRATION RATE > 60.0 (>60); GLUCOSE, FASTING 70 MG/DL (70-100); HDL CHOLESTEROL 57 MG/DL (>40); LDL CHOLESTEROL 49 MG/DL (<100); NON-HDL-C 66 MG/DL; POTASSIUM SERUM 4.3 MEQ/L (3.5-5.1); SODIUM LEVEL 142 MEQ/L (136-145); TOTAL PROTEIN 6.6 GM/DL (6.4-8.2); TRIGLYCERIDES LEVEL 87 MG/DL (<150)
[2018-01-10 15:54] LABS: TOTAL 25(OH) VITAMIN D 24.6 NG/ML (30.0-100.0)
== END ==
LOC: M LAB 11:40
DX: D64.9 Anemia, unspecified (principal); R53.83 Other fatigue; R94.31 Abnormal electrocardiogram [ECG] [EKG]
CPT/HCPCS: 71046

== ENCOUNTER 2018-04-17 15:23 | Emergency (ER) | payer OTHER ==
[2018-04-17] MEDS: ALBUTEROL SULFATE 2.5 MG/0.5 ML INH NEB SOLN NEB (16:48)
[2018-04-17] MEDS: NS 1,000 ML IV (16:48)
[2018-04-17 17:03] LABS: BASO # 0.1 10^3/uL (0.0-0.2); BASO % 0.9 % (0.0-1.0); EOS % 0.6 % (0.0-3.0); HEMATOCRIT 38.6 % (36.0-47.0); IMMATURE GRANULOCYTE % 0.3 % (0-3.0); LYMPH # 1.1 10^3/uL (1.5-4.5); LYMPH % 16.2 % (24.0-44.0); MEAN CORPUSCULAR HEMOGLOBIN 31.2 pg (27.0-33.0); MEAN CORPUSCULAR HGB CONC 33.7 g/dl (32.0-36.5); MEAN CORPUSCULAR VOLUME 92.6 fl (80.0-96.0); MONO # 0.2 10^3/uL (0.0-0.8); MONO % 2.9 % (0.0-5.0); NEUTROPHILS # 5.5 10^3/uL (1.8-7.7); NEUTROPHILS % 79.1 % (36.0-66.0); PLATELET COUNT, AUTOMATED 274 10^3/uL (150-450); RED BLOOD COUNT 4.17 10^6/uL (4.00-5.40); RED CELL DISTRIBUTION WIDTH 11.9 % (11.5-14.5)
[2018-04-17 17:12] LABS: ALBUMIN 3.8 GM/DL (3.2-5.2); ALBUMIN/GLOBULIN RATIO 1.09 (1.00-1.93); ALKALINE PHOSPHATASE 79 U/L (45-117); ALT/SGPT 23 U/L (12-78); ANION GAP 7 MEQ/L (8-16); AST/SGOT 18 U/L (7-37); BILIRUBIN,DIRECT 0.2 MG/DL (0.0-0.2); BILIRUBIN,TOTAL 0.8 MG/DL (0.2-1.0); BLOOD UREA NITROGEN 14 MG/DL (7-18); CALCIUM LEVEL 8.3 MG/DL (8.5-10.1); CARBON DIOXIDE LEVEL 27 MEQ/L (21-32); CHLORIDE LEVEL 105 MEQ/L (98-107); CREATININE FOR GFR 0.88 MG/DL (0.55-1.30); GLOMERULAR FILTRATION RATE > 60.0 (>60); GLUCOSE, FASTING 104 MG/DL (70-100); POTASSIUM SERUM 4.7 MEQ/L (3.5-5.1); SODIUM LEVEL 139 MEQ/L (136-145); TOTAL PROTEIN 7.3 GM/DL (6.4-8.2)
[2018-04-17 17:19] LABS: INR 0.99; PARTIAL THROMBOPLASTIN TIME 29.1 SECONDS (25.4-37.6); PROTHROMBIN TIME 13.2 SECONDS (12.1-14.4)
[2018-04-17 18:29] LABS: D-DIMER QUANT < 270 ng/ml (<500)
== END 2018-04-17 19:00 | disposition home or self-care (01) ==
LOC: M ED 15:23
DX: J20.9 Acute bronchitis, unspecified (principal); L08.9 Local infection of the skin and subcutaneous tissue, unspecified; I49.9 Cardiac arrhythmia, unspecified; R60.0 Localized edema; R53.83 Other fatigue; R21 Rash and other nonspecific skin eruption; Z20.818 Contact with and (suspected) exposure to other bacterial communicable diseases; I10 Essential (primary) hypertension; J45.909 Unspecified asthma, uncomplicated; F41.9 Anxiety disorder, unspecified; F98.8 Other specified behavioral and emotional disorders with onset usually occurring in childhood and adolescence; F17.210 Nicotine dependence, cigarettes, uncomplicated; Z79.899 Other long term (current) drug therapy
CPT/HCPCS: 71046

== ENCOUNTER → 2018-08-29 | Outpatient (REF) | payer OTHER ==
[~2018-08-29] MED LIST changes: +ALBU17IN; +ALEV220T26 PO; +BACT800T5 PO; +BUPR150T3; +BUPR15TA PO; +FLOM0.4C39 PO; +NAPR-837 PO; -NAPR500T PO; +NEXP1IMP SC; +TYLE500T78 PO; +VENTAER INH; +ZOFR4TAB14 PO
[2018-08-29 20:14] LABS: CHLAMYDIA DNA AMPLIFICATION NEGATIVE (NEGATIVE); GC DNA AMPLIFICATION NEGATIVE (NEGATIVE)
[2018-09-03 14:16] LABS: HPV HYBRID CAPTURE II Negative (Negative)
== END ==
LOC: M LAB REF 17:53
PROVIDERS: ATTEND Advanced Practice Midwife
DX: Z12.4 Encounter for screening for malignant neoplasm of cervix (principal); Z11.3 Encounter for screening for infections with a predominantly sexual mode of transmission

== ENCOUNTER 2018-11-20 22:12 | Emergency (ER) | payer OTHER ==
[~2018-11-20] VITALS: Ht 160 cm; Wt 59.1 kg
[2018-11-20] MEDS ORDERED: ALPR1TAB3 (22:21)
[2018-11-20] MEDS ORDERED: BUPR150T3 (22:21)
[2018-11-20] MEDS ORDERED: LISI10TA4 (22:21)
[2018-11-20] MEDS ORDERED: AMPHET/DEXTR (22:21)
[2018-11-20] MEDS ORDERED: VITA500045 (22:21)
[2018-11-20] MEDS ORDERED: BACTRIM 160MG/800MG DS TAB PO ONE (23:15)
[2018-11-20] MEDS ORDERED: BACT800T5 PO (23:29)
[2018-11-20 23:38] VITALS: BP 124/92
== END 2018-11-20 23:39 | disposition home or self-care (01) ==
LOC: M ED 22:12
DX: L03.90 Cellulitis, unspecified (principal); Z72.0 Tobacco use; Z79.899 Other long term (current) drug therapy

== ENCOUNTER 2019-01-17 19:26 | Emergency (ER) | payer OTHER ==
[~2019-01-17] VITALS: Ht 160 cm; Wt 61.4 kg
[~2019-01-17 19:26] MED LIST changes: +ALPR1TAB3; +AMPHET/DEXTR; +LISI10TA4; +VITA500045
[2019-01-17 19:28] VITALS: BP 134/85
[2019-01-17] MEDS ORDERED: IBUP200T45 PO (19:39)
[2019-01-17] MEDS ORDERED: KETOROLAC 30 MG/ML VIAL (J1885) IV ONE (21:30)
[2019-01-17] MEDS ORDERED: NS 1,000 ML IV ONE (21:30)
[2019-01-17 22:00] LABS: BASO # 0.1 10^3/uL (0.0-0.2); BASO % 0.6 % (0.0-1.0); EOS # 0.2 10^3/uL (0.0-0.5); EOS % 2.3 % (0.0-3.0); HEMATOCRIT 35.2 % (36.0-47.0); HEMOGLOBIN 11.8 g/dl (12.0-15.5); LYMPH # 2.1 10^3/uL (1.5-5.0); LYMPH % 19.3 % (24.0-44.0); MEAN CORPUSCULAR HEMOGLOBIN 31.1 pg (27.0-33.0); MEAN CORPUSCULAR HGB CONC 33.5 g/dl (32.0-36.5); MEAN CORPUSCULAR VOLUME 92.9 fl (80.0-96.0); MONO # 0.7 10^3/uL (0.0-0.8); MONO % 6.7 % (0.0-5.0); NEUTROPHILS # 7.5 10^3/uL (1.5-8.5); NEUTROPHILS % 70.7 % (36.0-66.0); PLATELET COUNT, AUTOMATED 242 10^3/uL (150-450); RED BLOOD COUNT 3.79 10^6/uL (4.00-5.40); WHITE BLOOD COUNT 10.6 10^3/uL (4.0-10.0)
[2019-01-17 22:13] LABS: ALBUMIN 3.3 GM/DL (3.2-5.2); ALT/SGPT 16 U/L (12-78); BILIRUBIN,DIRECT 0.2 MG/DL (0.0-0.2); BILIRUBIN,TOTAL 0.5 MG/DL (0.2-1.0); BLOOD UREA NITROGEN 16 MG/DL (7-18); C REACTIVE PROTEIN QUANTITATIV 3.85 MG/DL (0.00-0.30); CALCIUM LEVEL 8.6 MG/DL (8.5-10.1); CARBON DIOXIDE LEVEL 30 MEQ/L (21-32); CHLORIDE LEVEL 106 MEQ/L (98-107); CREATININE FOR GFR 0.77 MG/DL (0.55-1.30); GLOMERULAR FILTRATION RATE > 60.0 (>60); GLUCOSE, FASTING 97 MG/DL (70-100); SODIUM LEVEL 141 MEQ/L (136-145); TOTAL PROTEIN 6.7 GM/DL (6.4-8.2)
[2019-01-17] MEDS ORDERED: ISOVUE-370 76% 100ML VIAL (Q9967) As Ordered ONE (22:21)
[2019-01-17 22:32] LABS: ERYTHROCYTE SEDIMENTATION RATE 37 mm/hr (0-20)
--- NOTE | 2019-01-17 22:49 | REPVR ---
PROCEDURE INFORMATION: Exam: CT Neck With Contrast Exam date and time: 01/17/2019 10:38 PM Clinical history: 38 years old, female; Other: Bug bite; Additional info: Bug bite, indurated, R/O abscess TECHNIQUE: Imaging protocol: Computed tomography images of the neck with intravenous contrast. Radiation optimization: All CT scans at this facility use at least one of these dose optimization techniques: automated exposure control; mA and/or kV adjustment per patient size (includes targeted exams where dose is matched to clinical indication); or iterative reconstruction. Contrast material: ISOVUE 370; Contrast volume: 100 ml; Contrast route: IV; COMPARISON: No relevant prior studies available. FINDINGS: Nasopharynx: Unremarkable. Oropharynx: Unremarkable. No significant tonsillar enlargement. Hypopharynx: Unremarkable Larynx: Unremarkable. Normal epiglottis. Retropharyngeal space: Unremarkable. Submandibular/Parotid glands: Normal. Glands are normal in size. Thyroid: Normal. No enlarged or calcified nodules. Lymph nodes: 9 mm dominant lymph node in the right supraclavicular fossa. Lymph nodes measuring up to 6 mm in the left supraclavicular fossa. Trachea: Visualized trachea is unremarkable. Lungs: Unremarkable as visualized. Bones/joints: Reversal of cervical lordosis. Posterior bulging annulus at C4-5. Soft tissues: Skin thickening and soft tissue edema in the right medial buccal region. No well-defined abscess demonstrated at this time. 8 x 16 mm fluid density lesion in the subcutaneous soft tissues in the submental region to the right of midline. There is soft tissue edema demonstrated in the subcutaneous fat adjacent to the lesion. If this represents a site of reported insect bite the finding could represent a small abscess. Clinical correlation needed. IMPRESSION: 1. Skin thickening and soft tissue edema in the right medial buccal region. No well-defined abscess demonstrated at this time. 2. 8 x 16 mm fluid density lesion in the subcutaneous soft tissues in the submental region to the right of midline. There is soft tissue edema demonstrated in the subcutaneous fat adjacent to the lesion. If this represents a site of reported insect bite the finding could represent a small abscess. Clinical correlation needed. Electronically signed by: Pako Torres On 01/17/2019 22:48:37 PM
[2019-01-17] MEDS ORDERED: CLINDAMYCIN 900 MG in IV 1 EA IV ONE (23:15)
[2019-01-17] MEDS ORDERED: CLEO300C2 PO (23:31)
--- NOTE | 2019-01-20 20:02 | ED PDOC ---
Post-Departure Follow-Up dr farooq faxed formal report of ct neck for fu Levar Contreras MD Jan 20, 2019 20:01
== END 2019-01-18 00:20 | disposition home or self-care (01) ==
LOC: M ED 19:26
DX: L03.211 Cellulitis of face (principal); S00.86XA Insect bite (nonvenomous) of other part of head, initial encounter; S11.95XA Open bite of unspecified part of neck, initial encounter; W57.XXXA Bitten or stung by nonvenomous insect and other nonvenomous arthropods, initial encounter; Y92.89 Other specified places as the place of occurrence of the external cause; I10 Essential (primary) hypertension; J45.909 Unspecified asthma, uncomplicated; F90.9 Attention-deficit hyperactivity disorder, unspecified type; F17.200 Nicotine dependence, unspecified, uncomplicated
CPT/HCPCS: 70491; 80048; 80076; 83605; 84702; 85025; 85652; 86140; 87040; 96374; 96375; 99284; J1885; Q9967